=== PATIENT | male | born 1990 | race African-American/Black ===

== ENCOUNTER 2025-07-17 19:14 | Emergency (ER) | payer MEDICAID ==
[~2025-07-17] VITALS: Ht 190.5 cm; Wt 123.0 kg
[2025-07-17 19:21] VITALS: BP 127/71; PULSE 71; RESP 20; TEMP 36.9; O2SAT 98
[2025-07-17 21:29] LABS: CLARITY URINE CLEAR (CLEAR); COLOR URINE YELLOW (YELLOW); GLUCOSE URINE NEGATIVE (NEGATIVE); KETONES URINE NEGATIVE (NEGATIVE); PH URINE 6.5 (4.5-8.0); PROTEIN URINE NEGATIVE (NEGATIVE); SPECIFIC GRAVITY URINE 1.024 (1.005-1.030)
[2025-07-17 21:30] LABS: LEUKOCYTE ESTERASE URINE TRACE (NEGATIVE); NITRITE URINE NEGATIVE (NEGATIVE); OCCULT BLOOD URINE NEGATIVE (NEGATIVE); UROBILINOGEN URINE 2.0 E.U./dL (0.2-1.0)
[2025-07-17 21:42] LABS: BACTERIA URINE 2+; RBC URINE NONE SEEN /hpf (0-2); SQUAMOUS EPITHELIAL CELL URINE FEW /lpf (RARE/1+)
[2025-07-19 19:10] LABS: CHLAMYDIA TRACHOMATIS NAA Negative (Negative); NEISSERIA GONORRHOEAE NAA Negative (Negative)
== END 2025-07-17 21:29 | disposition left against medical advice (07) ==
LOC: ER 19:14
DX: N43.3 Hydrocele, unspecified (principal)
CPT/HCPCS: 81003; 87491; 87591; 99283